=== PATIENT | female | born 1975 | race Caucasian/White ===

== ENCOUNTER 2017-05-08 13:40 | Emergency (ER) | payer MEDICAID ==
[2017-05-08 18:18] VITALS: BP 130/69
== END 2017-05-08 18:18 | disposition home or self-care (01) ==
LOC: ED 13:40
DX: S00.81XA Abrasion of other part of head, initial encounter (principal); G80.9 Cerebral palsy, unspecified; W01.0XXA Fall on same level from slipping, tripping and stumbling without subsequent striking against object, initial encounter; Y93.89 Activity, other specified; Y92.89 Other specified places as the place of occurrence of the external cause; Y99.8 Other external cause status
CPT/HCPCS: 90715

== ENCOUNTER 2017-05-09 14:05 | Emergency (ER) | payer MEDICAID ==
[~2017-05-09] VITALS: Ht 167.6 cm; Wt 81.6 kg
[2017-05-09 17:23] VITALS: BP 130/72
== END 2017-05-09 14:11 | disposition home or self-care (01) ==
LOC: ED 14:05
DX: S01.112A Laceration without foreign body of left eyelid and periocular area, initial encounter (principal); S09.90XA Unspecified injury of head, initial encounter; G80.9 Cerebral palsy, unspecified; W10.9XXA Fall (on) (from) unspecified stairs and steps, initial encounter; Y93.89 Activity, other specified; Y92.89 Other specified places as the place of occurrence of the external cause; Y99.8 Other external cause status
CPT/HCPCS: 90715; J2001; J3490

== ENCOUNTER 2019-07-29 14:36 | Emergency (ER) | payer OTHER, MEDICAID ==
[~2019-07-29] VITALS: Ht 162.6 cm; Wt 93.9 kg
[2019-07-29 14:56] VITALS: Ht 162.6 cm; Wt 93.9 kg
[2019-07-29 16:30] LABS: BASOPHIL % 0.5 % (0-2); PLATELET COUNT 274 x10^3mcL (130-400); RED CELL DISTRIBUTION WIDTH 12.8 % (11.5-14.5)
[2019-07-29 16:47] LABS: CALCIUM 8.4 mg/dL (8.5-10.1); CARBON DIOXIDE 25.2 mmol/L (21-32); CHLORIDE SERUM 104 mmol/L (98-107); GFR1 > 60 mL/min; GLUCOSE SERUM 94 mg/dL (74-106); POTASSIUM SERUM 4.6 mmol/L (3.5-5.1); SODIUM SERUM 140 mmol/L (136-145)
[2019-07-29 16:51] LABS: ALBUMIN 3.9 g/dL (3.4-5.0); ALKALINE PHOSPHATASE 91 U/L (46-116); ALT/SGPT 87 U/L (14-59); AST/SGOT 51 U/L (15-37); BILIRUBIN TOTAL 0.4 mg/dL (0.20-1.00); LIPASE 160 IU/L (73-393)
[2019-07-29 18:36] VITALS: BP 131/76
== END 2019-07-29 18:37 | disposition home or self-care (01) ==
LOC: ED 14:36
PROVIDERS: Emergency Medicine
DX: K59.00 Constipation, unspecified (principal)
CPT/HCPCS: 36415

== ENCOUNTER 2019-08-13 09:20 | Inpatient (IN) | payer OTHER, MEDICAID ==
[~2019-08-13] VITALS: Ht 157.5 cm; Wt 94.8 kg
[2019-08-13 09:26] VITALS: Ht 157.5 cm; Wt 94.8 kg
--- NOTE | 2019-08-13 09:52 | NUR ---
AWAKE ALERT ,PER CAREGIVER HAS NO BOWEL MOVEMENT SINCE 5 DAYS, WAS SEEN HERE 2 WEEKS AGO WITH SAME ,CONSTIPATION
[2019-08-13 11:20] LABS: CALCIUM 8.7 mg/dL (8.5-10.1); CARBON DIOXIDE 26.6 mmol/L (21-32); CHLORIDE SERUM 106 mmol/L (98-107); GFR1 > 60 mL/min; GLUCOSE SERUM 83 mg/dL (74-106); POTASSIUM SERUM 4.2 mmol/L (3.5-5.1); SODIUM SERUM 139 mmol/L (136-145)
[2019-08-13 11:24] LABS: ALBUMIN 3.4 g/dL (3.4-5.0); ALKALINE PHOSPHATASE 75 U/L (46-116); ALT/SGPT 36 U/L (14-59); AST/SGOT 16 U/L (15-37); BILIRUBIN TOTAL 0.25 mg/dL (0.20-1.00); LIPASE 197 IU/L (73-393); TOTAL PROTEIN, SERUM 6.9 g/dL (6.4-8.2)
--- NOTE | 2019-08-13 11:50 | NUR ---
IV ESTBLISHD, FLUSHED WELL,FOR CT SCAN
[2019-08-13 11:59] LABS: BASOPHIL % 0.6 % (0-2); PLATELET COUNT 230 x10^3mcL (130-400); RED CELL DISTRIBUTION WIDTH 13.1 % (11.5-14.5)
--- NOTE | 2019-08-13 12:09 | NUR ---
BACK FROM CT SCAN,TECH,STATED IV FLUSHED WELL,THEN FLUSHED CONTRAST INFILTRATED,WARM COMPRESSORS APPLIED
[2019-08-13 13:15] LABS: microscopic required? NO
[2019-08-13 14:16] LABS: urine erythrocyte NEGATIVE (NEGATIVE)
[2019-08-13 15:32] LABS: T3 TOTAL 1.24 ng/mL
[2019-08-13 15:49] LABS: FREE T4 1.17 ng/dL (0.76-1.46); FREE THYROXINE INDEX 2.9 ug/dL (1.4-4.5); T4(THYROXINE) 8.3 ug/dL (4.7-13.3)
--- NOTE | 2019-08-13 16:02 | NUR ---
PT'S SISTER FRANKIE VASQUEZ AT BEDSIDE, PERSONAL CELL [phone].
--- NOTE | 2019-08-13 16:03 | NUR ---
HARDENED INFLAMMATION NOTED TO LUE FROM IV CONTRAST INFILTRATION, PER REPORT FROM CARON BAPTISTE, WARM COMPRESS PLACED.
--- NOTE | 2019-08-13 16:05 | NUR ---
PT AMBULATED TO RESTROOM WITH SLOW AND STEADY GAIT, SISTER ACCOMPANIED.
[2019-08-13 16:17] LABS: AMPHETAMINE QUAL UR NONE DETECTED (See below)
--- NOTE | 2019-08-13 16:28 | NUR ---
PT MEDICATED PER EMAR, PER PT'S SISTER PT DID NOT HAVE A BM.
[2019-08-13] MEDS ORDERED: MULTI-VITAMINS1 TAB PO (16:35)
[2019-08-13] MEDS ORDERED: SENNA8.6 M2 PO (16:36)
[2019-08-13] MEDS ORDERED: DOK250 MG PO (16:36)
[2019-08-13] MEDS ORDERED: LAMICTAL150 MG PO (16:37)
[2019-08-13] MEDS ORDERED: TRAZODONE100 MG PO (16:37)
[2019-08-13] MEDS ORDERED: IBUPROFEN400 MG PO (16:37)
[2019-08-13] MEDS ORDERED: BENZTROPINE MESY1 MG PO (16:37)
[2019-08-13] MEDS ORDERED: MYSOLINE50 M1 PO (16:38)
[2019-08-13] MEDS ORDERED: SEROQUEL XR50 MG PO (16:39)
[2019-08-13] MEDS ORDERED: CHLORPROMAZINE200 MG PO (16:40)
[2019-08-13] MEDS ORDERED: INTUNIV4 MG PO (16:41)
--- NOTE | 2019-08-13 16:41 | NUR ---
PT'S SISTER PROVIDED MED REC, STS PT NEEDS PM MEDS.
--- NOTE | 2019-08-13 16:48 | NUR ---
SPOKE WITH DR BRIGHT, INFORMED OF PT'S UPDATED MED REC WELL FAMILY WANTING TO SPEAK WITH HIM,IN REGARDS TO POC.
--- NOTE | 2019-08-13 17:27 | NUR ---
DR BRIGHT AT BEDSIDE TO DISCUSS POC WITH PT'S SISTER.
--- NOTE | 2019-08-13 17:37 | NUR ---
PER DR BRIGHT, PT AND SISTER INFORMED PT MUST REMAIN NPO UNTIL "SURGEON CONSULT" IS COMPLETED, PT AND SISTER MADE AWARE.
--- NOTE | 2019-08-13 17:38 | NUR ---
PER DR BRIGHT, NO NG/OG TUBE NEEDED FOR GASTRIC DECOMPRESSION.
--- NOTE | 2019-08-13 19:15 | NUR ---
ATTEMPTED TO GIVE REPORT FOR PT, PER SHIRT OPERATOR, PT'S NURSE "IS STILL GETTING REPORT", WILL ATTEMPT TO GIVE REPORT LATER.
--- NOTE | 2019-08-13 19:34 | NUR ---
REPORT GIVEN TO OLIVA DEGROOT TO ASSUME CARE OF PT.
--- NOTE | 2019-08-13 19:50 | NUR ---
RECEIVED PT FROM ED. PT AOX3, ABLE TO MAKE NEEDS KNOWN. DENIES MCKEON/DIZZINESS. MED SURG PT, DENIES CP/PRESSURE. DENIES SOB/DIFFICULTY BREATHING, ON RA. HARITHA EDEAM/ WARM TO TOUCH/HARD TO TOUCH. NO ERYTHEMA NOTED. IV TO RFA, INTACT AND PATENT. SISTER AT BEDSIDE. BED IN LOWEST POSITION. CALL LIGHT WITHIN REACH. WILL CONTINUE TO MONITOR.
[2019-08-13 20:14] VITALS: BP 148/89
--- NOTE | 2019-08-13 22:50 | NUR ---
PT MOTHER REPORTS PT HAD LARGE BM.
--- NOTE | 2019-08-14 02:56 | NUR ---
PT RESTING IN BED. RR EVEN AND UNLABORED. IN NO ACUTE DISTRESS. CALL LIGHT WITHIN REACH. BED IN LOWEST POSITION. WILL CONTINUE TO MONITOR.
--- NOTE | 2019-08-14 04:25 | NUR ---
PER PT MOTHER, PT HAD SECOND LARGE BM, REPORTS BM LARGE HARD FORMED STOOL.
[2019-08-14 05:12] VITALS: BP 150/84
--- NOTE | 2019-08-14 07:00 | NUR ---
RECEIVED REPORT FROM JESSICA RN AT BEDSIDE, PT RESTING IN BED IN NO ACUTE DISTRESS
[2019-08-14 07:32] LABS: PLATELET COUNT 216 x10^3mcL (130-400)
--- NOTE | 2019-08-14 07:38 | NUR ---
PT RESTING IN BED, IN NO ACUTE DISTRESS, AXO, VERBAL, ABLE TO MAKE NEEDS KNOWN, CALM AND COPPERATIVE, DENIED MCKEON/DIZZINESS, PERRLA, NO REDNESS/DRAINAGE EENT, RESP EVEN, NO SOB/COUGH, MEDSURG, DENIED CP/PALPITATION, DENIED PAIN/DISCOMFORT, BS ACTIVE X 4, PALP PULSES, CAP REFILL < 2S, SEE SKIN ASSESSMENT, SKIN C/D/W, IV PATENT AND INFUSING WELL, MOTHER AT BEDSIDE, ALL NEEDS ADDRESSED AT THIS TIME, SAFETY PROTOCOL FOLLOWED, CONTINUE TO MONITOR
[2019-08-14 07:47] LABS: CALCIUM 8.3 mg/dL (8.5-10.1); CARBON DIOXIDE 18.9 mmol/L (21-32); CHLORIDE SERUM 106 mmol/L (98-107); CREATININE SERUM 0.8 mg/dL (0.6-1.0); GFR1 > 60 mL/min; GLUCOSE SERUM 72 mg/dL (74-106); MAGNESIUM 1.9 mg/dL (1.8-2.4); PHOSPHOROUS 3.7 mg/dL (2.5-4.9); SODIUM SERUM 138 mmol/L (136-145)
[2019-08-14 08:06] VITALS: BP 149/79
--- NOTE | 2019-08-14 09:31 | NUR ---
AM MEDs GIVEN PER MD ORDER VIA EMAR, TOLERATED WELL, EDUCATED PT R/T MEDs, ASE AND MONITOR, VERBALLY UNDERSTANDING, ALL NEEDS ADDRESSED AT THIS TIME, SAFETY PROTOCOL FOLLOWED, CONTNUE TO MONITOR
[2019-08-14 12:03] VITALS: BP 135/76
[2019-08-14] MEDS ORDERED: MIRALAX17 GM/Dose PO (12:07)
[2019-08-14 12:09] VITALS: BP 116/61
--- NOTE | 2019-08-14 13:29 | NUR ---
PT RESTING IN BED, IN NO ACUTE DISTRESS, ASSITED TO BATHROOM, VOID X 1, ASSSITED BACK TO BED, TOLERATED LUNCH WELL, MONTHER AT BEDSIDE, ALL NEEDS ADDRESSED, SAFETY PROTOCOL FOLLOWED, CONTINUE TO MONITOR
--- NOTE | 2019-08-14 14:02 | NUR ---
DC PAPER SIGNED AND COPY KEPT IN CHART, PT IN NO ACUTE DISTRESS, IV REMOVED, IV CATH TIP PATENT, NO ACTIVE BLEEDING NOTED, PT AND MOTHER MADE AWARE OF NEW PRESCRIPTION FAXED TO [facility], SAID WILL CALL AND ASK FOR MED DELIVERY TO HOME, PT AND MOTHER MADE AWARE OF F/U W/ PCP 3-4 DAYS AFTER DC HOME, MOTHER SAID PT WILL BE VISITED BY CAREGIVER AND SHE WILL GIVE THE CNC MILL PROGRAMMER ALL THE INFORMATION R/T DC, MED AND F/U CARE, EDUCATED OF CONDITION, PREVENTION, MED, ASE AND MONITOR GIVING TO MOTHER AND PT, VERBALLY UNDERSTANDING, ALL NEEDS ADDRESSED, PT ASSISTED TO LOBBY BY NURSING STAFFS VIA WC. PT DC HOME W/ MOTHER AND CAREGIVER AT HOME.
== END 2019-08-14 14:00 | disposition home or self-care (01) | DRG 389 ==
LOC: ED 09:20 → MU 14:39
PROVIDERS: Student in an Organized Health Care Education/Training Program; ADMIT Family Medicine
DX: K56.600 Partial intestinal obstruction, unspecified as to cause (principal); F84.0 Autistic disorder; G80.9 Cerebral palsy, unspecified; R62.50 Unspecified lack of expected normal physiological development in childhood; G40.909 Epilepsy, unspecified, not intractable, without status epilepticus; Z68.36 Body mass index [BMI] 36.0-36.9, adult
CPT/HCPCS: 84439; G0378; J7030; Q0092; Q0161; Q9967